=== PATIENT | male | born 1975 | race Caucasian/White ===

== ENCOUNTER → 2018-06-14 09:12 | Outpatient (CLI) | payer OTHER, SELFPAY ==
--- NOTE | 2018-06-14 | DI.US.S_ITS ---
PROCEDURE: US ABDOMEN COMPLETE INDICATIONS: ABDOMINAL PAIN TECHNIQUE: Real-time scanning was performed of the abdominal and retroperitoneal organs, with image documentation. COMPARISON: [facility], US, ABDOMEN COMPLETE, 02/13/2012, 11:02. FINDINGS: Liver: Liver is normal in size and homogeneous in echotexture. Gallbladder: Gallbladder is within normal limits without cholelithiasis or gallbladder wall inflammation. Biliary ducts: Intrahepatic bile ducts are non-dilated. Extrahepatic bile duct caliber measures 3 mm. Normal is 6-7 mm or less in diameter, or 10 mm or less post-cholecystectomy. Pancreas: Visualized portions of the pancreas are sonographically normal. Spleen: Spleen is normal in size and homogeneous in echotexture. Kidneys: Kidneys are normal in size and echotexture. Right kidney measures 11.6 cm long; left kidney measures 12.9 cm long. No hydronephrosis or nephrolithiasis. No solid masses. Aorta: Visualized aorta is normal in caliber at less than 3 cm. Iliacs: Proximal common iliac arteries are normal in caliber at less than 2.5 cm. IVC: Intrahepatic inferior vena cava is patent. Miscellaneous: No free abdominal fluid. IMPRESSION: 1. No sonographic abnormalities are evident to explain the patient's abdominal pain. 2. No cholelithiasis or evidence of acute cholecystitis. 3. No hydronephrosis. Dictated by: Emile Valadez M.D. on 06/14/2018 at 9:43 Approved by: Emile Valadez M.D. on 06/14/2018 at 9:44
== END ==
PROVIDERS: Family Provider Internal Medicine; PCP Family Medicine; Visit Provider Family Medicine
DX: R10.9 Unspecified abdominal pain (principal)
CPT/HCPCS: 76700

== ENCOUNTER → 2020-01-29 10:26 | Outpatient (CLI) | payer OTHER, SELFPAY ==
--- NOTE | 2020-01-29 | DI.RAD.S_ITS ---
PROCEDURE: XR T AND L SPINE 2 TO 3 VIEWS INDICATIONS: Pain in right thigh TECHNIQUE: 2 views acquired of the thoracolumbar spine. COMPARISON: None. FINDINGS: Diffuse spondylitic changes and facet arthropathy. Mild dextrocurvature. No fracture. Soft tissues: No suspicious soft tissue calcifications. IMPRESSION: Dextrocurvature of the thoracic spine and diffuse spondylosis. Dictated by: Moreno Simon M.D. on 01/29/2020 at 15:01 Approved by: Moreno Simon M.D. on 01/29/2020 at 15:03
--- NOTE | 2020-01-29 | DI.RAD.S_ITS ---
PROCEDURE: XR FEMUR RT MIN 2V INDICATIONS: Pain in right thigh TECHNIQUE: 4 views of the femur were acquired. COMPARISON: None. FINDINGS: Bones: No fracture. Calcific tendinitis or dystrophic calcifications projecting at the right greater trochanter. Mild to moderate right hip joint degeneration. Soft tissues: No suspicious soft tissue calcifications or masses. IMPRESSION: Degenerative changes as above. No fracture If the patient's pain or other symptoms persist, consider further evaluation with MRI Dictated by: Moreno Simon M.D. on 01/29/2020 at 13:15 Approved by: Moreno Simon M.D. on 01/29/2020 at 13:19
--- NOTE | 2020-01-29 | DI.RAD.S_ITS ---
PROCEDURE: XR FEMUR LT MIN 2V INDICATIONS: Pain in right thigh TECHNIQUE: 4 views of the femur were acquired. COMPARISON: None. FINDINGS: Bones: No fractures or dislocations. No suspicious bony lesions. Soft tissues: No suspicious soft tissue calcifications or masses. IMPRESSION: Mild left hip joint degeneration. If the patient's pain or other symptoms persist, consider further evaluation with MRI Dictated by: Moreno Simon M.D. on 01/29/2020 at 14:51 Approved by: Moreno Simon M.D. on 01/29/2020 at 15:01
== END ==
PROVIDERS: Family Provider Internal Medicine; PCP Family Medicine; Referring Provider Family Medicine; Visit Provider Family Medicine
DX: M79.651 Pain in right thigh (principal); M16.0 Bilateral primary osteoarthritis of hip; M47.814 Spondylosis without myelopathy or radiculopathy, thoracic region; M54.6 Pain in thoracic spine; G89.29 Other chronic pain
CPT/HCPCS: 72082; 73552

== ENCOUNTER 2020-06-29 18:18 | Inpatient (IN) | payer OTHER, SELFPAY ==
[2020-06-29] VITALS (8 sets, daily range): BP systolic 125–143; BP diastolic 58–78; PULSE 81–100; RESP 16–20; TEMP 37.4–38.4; O2SAT 97–99; BMI 29.0
--- NOTE | 2020-06-29 19:10 | ED_ITS ---
HPI - Skin/Abscess/Foreign Bdy General Chief complaint: Skin/Abscess/Foreign Body Stated complaint: RIGHT KNEE INFECTION Time Seen by Provider: 06/29/20 19:03 Source: patient Mode of arrival: Wheelchair Limitations: no limitations History of Present Illness HPI narrative: Patient is an otherwise healthy 44-year-old male here for evaluation of a infection around his right knee. He states that several days ago he had what he thought was an ingrown hair which he picked at it home. He thought that this would resolve the symptoms however since that time has had developing redness and discomfort in the front of his right knee. Yesterday was seen by his primary provider. Received a shot of a ?antibiotic? and was sent home with a prescription for Augmentin. He has taken 1 dose of that medication. He was instructed to follow-up with orthopedics which he initially had scheduled for tomorrow however came to the emergency department because his symptoms were worsening. He denies any trauma. Has never had anything like this in the past. Related Data Home Medications Medication Instructions Recorded Confirmed ibuprofen 600 mg PO TID 06/29/20 06/29/20 Allergies Allergy/AdvReac Type Severity Reaction Status Date / Time iodine [IODINE] Allergy Unknown Verified 06/29/20 20:14 Review of Systems Constitutional Constitutional: Denies fever(s) Cardiovascular Cardiovascular: Denies chest pain and Denies dyspnea Respiratory Respiratory: Denies dyspnea Gastrointestinal Gastrointestinal: Denies abdominal pain Musculoskeletal Comments: Pain around the right knee Integumentary/Breasts Comments: Redness around the right knee Neurologic Neurologic: Denies behavioral changes Psychiatric Psychiatric: Denies behavioral changes Hematologic/Lymphatic On Anticoagulants: No Allergic/Immunologic Allergic/Immunologic: Denies urticaria Patient History Medical History Healthy adult Social History household members: spouse and children Smoking Status: Former smoker alcohol intake: former Exam Initial Vital Signs Initial Vital Signs: Vital Signs Temperature 100.1 F H 06/29/20 18:20 Pulse Rate 100 H 06/29/20 18:20 Respiratory Rate 20 06/29/20 18:20 Blood Pressure 143/78 H 06/29/20 18:20 Pulse Oximetry 98 06/29/20 18:20 Const General: cooperative, comfortable, well groomed, No in distress and No di sheveled Limitations: mental status not altered [facility] Head: normal to inspection and normocephalic Resp Effort & Inspection: normal respiratory effort Cardio Rate: tachycardic Pulses: dorsalis pedis present on the right Skin Other: Patient with a 2 cm area of white over the inferior portion of his patella tendon just proximal to the tibial tuberosity. His surrounding erythema mostly located on the lateral side from his mid thigh down to his ankle however there is redness posteriorly and medially as well. It is warm to the touch. Extrem Other: Patient can flex and extend his right knee without discomfort in the knee joint. Psych Appearance: grossly normal and well kempt Course Orders Ordered: ED Orders 06/29/20 19:00 Basic Metabolic Panel Stat C-Reactive Protein Quant Stat Complete Blood Count AUTO DIFF Stat Erythrocyte Sedimentation Rate Stat Lactate (Lactic Acid) Stat 06/29/20 19:06 Wound Culture and Gram Stain Stat 06/29/20 19:09 COVID19 Stat 06/29/20 19:10 XR knee RT 3V Stat 06/29/20 19:37 Blood Culture Stat 06/29/20 19:48 Consult to Orthopedic Surgery Stat Acetaminophen (Acetaminophen 325 Mg Tablet) 650 mg PO Q6HR PRN PRN Reason: Fever/Mild Pain (1-3) Sodium Chloride (Normal Saline 0.9%) 1,000 mls @ 150 mls/hr IV CONT MARIELENA Last Infusion: 06/29/20 21:30 Dose: 0 mls/hr Documented by: Admin: 06/29/20 19:36 Dose: 150 mls/hr Documented by: LAKESHA Ceftriaxone Sodium/Dextrose (Rocephin) 1 gm in 50 mls @ 100 mls/hr IV Q24H MARIELENA Morphine Sulfate (Morphine 2 Mg/Ml Inj) 2 mg IV Q4HR PRN PRN Reason: Pain, Moderate (4-6) Naloxone HCl (Naloxone 0.4 Mg/Ml Vial) 0.2 mg IV Q2MIN PRN PRN Reason: Opiate Reversal Ondansetron HCl (Ondansetron 4 Mg/2 Ml Inj) 4 mg IV Q8HR PRN PRN Reason: Nausea And Vomiting Sodium Chloride (Sodium Chloride 0.9% Flush) 10 ml IV BID MARIELENA Sodium Chloride (Sodium Chloride 0.9% Flush) 10 ml IV PRN PRN PRN Reason: Flush Discontinued Medications Acetaminophen (Acetaminophen 325 Mg Tablet) 650 mg PO NOW ONE Stop: 06/29/20 21:09 Last Admin: 06/29/20 21:11 Dose: 650 mg Documented by: LAKESHA Vancomycin HCl (Vancomycin) 1,000 mg in 200 mls @ 200 mls/hr IV NOW ONE Stop: 06/29/20 20:09 Last Infusion: 06/29/20 21:19 Dose: 0 mls/hr Documented by: Admin: 06/29/20 20:10 Dose: 200 mls/hr Documented by: LAKESHA Ceftriaxone Sodium/Dextrose (Rocephin) 1 gm in 50 mls @ 100 mls/hr IV NOW ONE Stop: 06/29/20 19:41 Last Infusion: 06/29/20 20:10 Dose: 0 mls/hr Documented by: Admin: 06/29/20 19:35 Dose: 100 mls/hr Documented by: LAKESHA Vital Signs Vital signs: Vital Signs - 8 hr 06/29/20 18:20 06/29/20 19:36 06/29/20 20:00 Temperature 100.1 F H Pulse Rate 100 H 87 83 Respiratory Rate 20 Blood Pressure 143/78 H Pulse Oximetry 98 97 98 06/29/20 20:04 06/29/20 21:00 Temperature Pulse Rate 89 84 Respiratory Rate 16 Blood Pressure 140/76 125/58 L Pulse Oximetry 98 99 MDM - Skin/Abscess/Foreign Bdy Lab Data Attestation: I reviewed the patient's lab results. Result diagrams: 06/29/20 19:00 06/29/20 19:00 Labs: Lab Results 06/29/20 06/29/20 06/29/20 Range/Units 19:00 19:00 19:00 WBC 14.4 H (4.5-11.0) X10^3/uL RBC 4.49 L (4.5-5.9) X10^6/uL Hgb 14.5 (13.5-17.5) g/dL Hct 41.6 (41-53) % MCV 92.6 (80-100) fL MCH 32.4 (26-34) PG MCHC 34.9 (30-36) % RDW 12.4 (11.6-14.8) % Plt Count 368 (150-400) X10^3/uL Neut % (Auto) 79.6 H (50-75) % Lymph % (Auto) 10.1 L (25-40) % [place] % (Auto) 9.7 (3-14) % Eos % (Auto) 0.2 L (2-4) % Baso % (Auto) 0.4 (0-2) % Neut # (Auto) 83748 H (5195-2038) /uL Lymph # (Auto) 1400 (2147-1406) /uL [place] # (Auto) 1400 H (0-900) /uL Eos # (Auto) 0 (0-450) /uL Baso # (Auto) 100 (0-100) /uL ESR 47 H (0-15) MM/HR Sodium 135 L (137-145) mmol/L Potassium 4.0 (3.4-5.1) mmol/L Chloride 102 (98-107) mmol/L Carbon Dioxide 26 (22-32) mmol/L BUN 14 (9-20) mg/dL Creatinine 0.98 (0.66-1.25) mg/dL Estimated GFR > 60.0 (>60) mL/min BUN/Creatinine Ratio 14.3 (6-22) Glucose 132 H (70-100) mg/dL Lactate (0.7-2.1) mmol/L Calcium 9.4 (8.4-10.2) mg/dL C-Reactive Protein 12.2 H (<1.0) mg/dL SARS-CoV-2 (PCR) (Negative) 06/29/20 06/29/20 Range/Units 19:00 19:09 WBC (4.5-11.0) X10^3/uL RBC (4.5-5.9) X10^6/uL Hgb (13.5-17.5) g/dL Hct (41-53) % MCV (80-100) fL MCH (26-34) PG MCHC (30-36) % RDW (11.6-14.8) % Plt Count (150-400) X10^3/uL Neut % (Auto) (50-75) % Lymph % (Auto) (25-40) % [place] % (Auto) (3-14) % Eos % (Auto) (2-4) % Baso % (Auto) (0-2) % Neut # (Auto) (9768-4154) /uL Lymph # (Auto) (1383-5045) /uL [place] # (Auto) (0-900) /uL Eos # (Auto) (0-450) /uL Baso # (Auto) (0-100) /uL ESR (0-15) MM/HR Sodium (137-145) mmol/L Potassium (3.4-5.1) mmol/L Chloride (98-107) mmol/L Carbon Dioxide (22-32) mmol/L BUN (9-20) mg/dL Creatinine (0.66-1.25) mg/dL Estimated GFR (>60) mL/min BUN/Creatinine Ratio (6-22) Glucose (70-100) mg/dL Lactate 1.3 (0.7-2.1) mmol/L Calcium (8.4-10.2) mg/dL C-Reactive Protein (<1.0) mg/dL SARS-CoV-2 (PCR) Negative (Negative) Imaging Data Extremity x-ray #1: Radiologist's Impression: [address] [id number] ReportSigned Patient: Rolando Au BMR#: [id number]: [id number]:[id number]/Sex: 44 / MDate of Service: 06/29/20Loc: EDAccession Number: [id number] Procedure: XR knee RT 3V Ordering Provider: Wilfredo Suazo D.O. PROCEDURE: XR KNEE RT 3V INDICATIONS: cellulitis TECHNIQUE: 3 views of the knee were acquired. COMPARISON: None. FINDINGS: Bones: There are tricompartmental degenerative changes with tricompartmental osteophytes. Lateral patellar tilt is noted with narrowing of the lateral joint space. No medial or lateral joint space narrowing. No fracture or dislocation. Soft tissues: No joint effusion. No suspicious soft tissue calcifications. No soft tissue gas. No radiopaque foreign bodies. IMPRESSION: Tricompartmental degenerative changes consistent with osteoarthritis. No acute abnormality. Dictated by: Edilberto Powell M.D. on 06/29/2020 at 19:37 Approved by: Edilberto Powell M.D. on 06/29/2020 at 19:39 [facility] Narrative Medical decision making narrative: Patient's history and physical exam today is consistent with cellulitis/abscess. When the patient flexed his right knee on the exam a large amount of purulent material was expressed from the white area on the inferior portion of his patella tendon. I do have low suspicion for a septic joint given his presentation. He does have a leukocytosis. The purulent material was cultured. He was started on vancomycin and Rocephin. Blood cultures were also obtained. I did discuss the case with Dr. cardenas with orthopedics who evaluated the patient here in the emergency department and performed a larger incision and drainage of the abscess and was able to express more purulent material. He recommended patient be admitted to the medicine service for continued IV antibiotics. Discussed the case with [facility] provider who will admit for further evaluation and treatment. I discussed this with the patient as well. He expressed understanding and agreement. Discharge Plan Departure Patient Disposition: Admitted As Inpatient Clinical Impression: Cellulitis Admit Date/Time: 06/29/20 21:04 Admit Provider: Zena Simon
[2020-06-29 19:17] LABS: Add Manual Diff / Slide Review NO; Basophils Absolute Auto 100 /uL (0-100); Basophils Percent Auto 0.4 % (0-2); Eosinophils Absolute Auto 0 /uL (0-450); Eosinophils Percent Auto 0.2 % (2-4); Hematocrit 41.6 % (41-53); Hemoglobin 14.5 g/dL (13.5-17.5); Lymphocytes Absolute Auto 1400 /uL (1100-4500); Lymphocytes Percent Auto 10.1 % (25-40); Mean Corpuscular HGB Conc 34.9 % (30-36); Mean Corpuscular Hemoglobin 32.4 PG (26-34); Mean Corpuscular Volume 92.6 fL (80-100); Monocytes Absolute Auto 1400 /uL (0-900); Monocytes Percent Auto 9.7 % (3-14); Neutrophils Absolute Auto 11500 /uL (1500-7000); Neutrophils Percent Auto 79.6 % (50-75); Platelet Count 368 X10^3/uL (150-400); Red Blood Cell Count 4.49 X10^6/uL (4.5-5.9); Red Cell Distribution Width 12.4 % (11.6-14.8); White Blood Cell Count 14.4 X10^3/uL (4.5-11.0)
[2020-06-29 19:24] LABS: Lactate (Lactic Acid) 1.3 mmol/L (0.7-2.1)
[2020-06-29 19:27] LABS: BUN Creatinine Ratio 14.3 (6-22); Blood Urea Nitrogen 14 mg/dL (9-20); Calcium 9.4 mg/dL (8.4-10.2); Carbon Dioxide 26 mmol/L (22-32); Chloride 102 mmol/L (98-107); Estimated Glomerular Filt Rate > 60.0 mL/min (>60); Glucose 132 mg/dL (70-100); HEMOLYSIS 16 (0-50); Sodium 135 mmol/L (137-145)
[2020-06-29 19:30] LABS: COVID19 -Nasal RAPID Negative (Negative)
[2020-06-29] MEDS: CEFTRIAXONE 1 GM/50 ML FROZ.PIGGY IV (19:35)
[2020-06-29] MEDS: SODIUM CHLORIDE 0.9% 1,000 ML 150 ML IV (19:36)
[2020-06-29 19:42] LABS: C-Reactive Protein Quant 12.2 mg/dL (<1.0)
[2020-06-29 19:43] LABS: Erythrocyte Sedimentation Rate 47 MM/HR (0-15)
[2020-06-29] MEDS: VANCOMYCIN 1,000 MG/200 ML PIGGYBACK 200 MG IV (20:10)
[2020-06-29] MEDS: LIDOCAINE 1% W/EPI 30 ML (20:20)
--- NOTE | 2020-06-29 20:46 | P.CONS_ITS ---
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 Patient has a long history of recurrent staph infections as well as history of recurring prepatellar bursitis. Patient noticed worsening pain over the anterior aspect of his right knee several days ago. Pain became excruciatingly painful several days ago and he was seen by his physician at [facility]. He received an intramuscular injection of antibiotics likely Rocephin. He has been on oral antibiotics since that time without significant relief of symptoms. Patient presents the ED with pain and worsening erythema spreading up his thigh and down his lower leg. During the ER physicians exam the prepatellar bursa spontaneously started to decompress. Copious purulent material was encountered. Patient had immediate relief of some of his pain and he can range his knee without significant difficulty. Meds Home Medications and Allergies Home Medications Medication Instructions Recorded Confirmed Type ibuprofen 600 mg PO TID 06/29/20 06/29/20 History Allergies Allergy/AdvReac Type Severity Reaction Status Date / Time iodine [IODINE] Allergy Unknown Verified 06/29/20 20:14 Review of Systems Review of Systems ROS: Yes All systems reviewed with the patient and are negative except as otherwise documented Exam Vital Signs (past 8 hours): - 06/29/20 18:20 06/29/20 19:36 06/29/20 20:00 Temperature 100.1 F H Pulse Rate 100 H 87 83 Respiratory Rate 20 Blood Pressure 143/78 H Pulse Oximetry 98 97 98 06/29/20 20:04 Temperature Pulse Rate 89 Respiratory Rate Blood Pressure 140/76 Pulse Oximetry 98 Oxygen Delivery Method Room Air Narrative Exam Narrative: Neurovascular intact in the right lower extremity. Fluctuant mass centered at the prepatellar bursa. Small eruption through the skin with purulence material draining. Slight erythema extending proximal to the knee as well as down the lower leg without induration. No streaking. Range of motion of the knee from full extension to 90? of flexion without significant difficulty. Objective Labs Result Diagrams: 06/29/20 19:00 06/29/20 19:00 Labs: Laboratory Results - last 24 hr 06/29/20 06/29/20 06/29/20 19:00 19:00 19:00 WBC 14.4 H RBC 4.49 L Hgb 14.5 Hct 41.6 MCV 92.6 MCH 32.4 MCHC 34.9 RDW 12.4 Plt Count 368 Neut % (Auto) 79.6 H Lymph % (Auto) 10.1 L [place] % (Auto) 9.7 Eos % (Auto) 0.2 L Baso % (Auto) 0.4 Neut # (Auto) 55364 H Lymph # (Auto) 1400 [place] # (Auto) 1400 H Eos # (Auto) 0 Baso # (Auto) 100 ESR 47 H Sodium 135 L Potassium 4.0 Chloride 102 Carbon Dioxide 26 BUN 14 Creatinine 0.98 Estimated GFR > 60.0 BUN/Creatinine Ratio 14.3 Glucose 132 H Lactate Calcium 9.4 C-Reactive Protein 12.2 H SARS-CoV-2 (PCR) 06/29/20 06/29/20 19:00 19:09 WBC RBC Hgb Hct MCV MCH MCHC RDW Plt Count Neut % (Auto) Lymph % (Auto) [place] % (Auto) Eos % (Auto) Baso % (Auto) Neut # (Auto) Lymph # (Auto) [place] # (Auto) Eos # (Auto) Baso # (Auto) ESR Sodium Potassium Chloride Carbon Dioxide BUN Creatinine Estimated GFR BUN/Creatinine Ratio Glucose Lactate 1.3 Calcium C-Reactive Protein SARS-CoV-2 (PCR) Negative Assessment & Plan Assessment & Plan narrative: Patient is a 44-year-old male with a longstanding history of recurrent staph infections as well as her current history of prepatellar bursitis. Patient received a dose of intramuscular antibiotics from his primary care physician and orbits on likely Rocephin. He has also been prescribed oral antibiotics. He has not had significant relief of symptoms. The prepatellar bursa spontaneously started to decompress in the ER I then further decompressed the prepatellar bursa and flushed it with 500 cc of normal saline. I then packed the prepatellar bursa with quarter-inch plain packing. Patient may ultimately require a trip to the OR however this point this is certainly temporized his infection. My hope is that daily packing changes along with IV antibiotics will be enough to clear this infection. Admit to hospitalist service. -NPO after midnight -weightbearing as tolerated right lower extremity -elevate the extremity while in bed -Compressive wrap -IV antibiotics for septic prepatellar bursitis and cellulitis, likely staphy lococcal infection due to previous history of multiple staph infections -daily packing changes Time Spent With Patient Time with patient: Greater than 35 minutes
[2020-06-29] MEDS: ACETAMINOPHEN 325 MG TABLET 650 MG PO (21:11)
--- NOTE | 2020-06-29 22:12 | PC.NURSE ---
Admission note: Patient arrived via stretcher, transferred self to in patient bed. AxOx3, can make needs known. No hx of recent falls. Venkatesh wrap to right knee, gauze with serosang drainage. Ambulates SBA without assistive device. Fall risk and call light education given, call light in reach.
[2020-06-30] VITALS (10 sets, daily range): BP systolic 107–139; BP diastolic 63–85; PULSE 71–84; RESP 16–20; TEMP 36.8–37.6; O2SAT 94–98
--- NOTE | 2020-06-30 03:30 | P.HP_ITS ---
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 He affected open to expose the hair and saw that he had quite a bit of purulence drainage coming out of it. He saw his PCP over on [facility] who gave him an intramuscular injection of Rocephin and prescribed oral Augmentin. He states he took 1 dose of the Augmentin this morning and his knee started to show increased swelling posteriorly as well as increasing erythema. He contacted his PCP who directed him to go get off the [place] and be seen at this ED. The patient has had a number of staph infections usually attributable to his work where he spends a lot of time on his hands and knees. He was also febrile on presentation to the ED of 101?. Dr. Hernandez saw the patient and opened up his wound and was able the express quite a bit of purulence discharge out of the wound. Per the patient he did irrigate the wound and packed it with gauze. He plans to re-evaluate the patient and repack or bring the patient into surgery for a more extensive washout. Currently his temperature has improved and is 99.7 blood pressure 129/73, heart rate 84, respiratory rate of 18, oxygen saturation of 97% on room air he weighs 106 kg with a BMI of 29. His white count is elevated at 14.4, RBC is 4.49, hemoglobin 14.5, hematocrit 41.6, platelet count 368, a does have a left shift with a neutrophil count of 11,500, his ESR is elevated at 47, sodium is 135, glucose was 132, C-reactive protein was 12.2, and COVID 19 PCR is negative. Patient History Medical History Healthy adult Family & Social History Family History Mother Alive and well Father Suicide Social History: household members spouse,children Prior Living Arrangements House Safety & Behavioral: Feels Safe in Current Yes Environment Been Physically Hurt or No Threatened By a Person Suicidal Ideation Description None Suicide Plan Description No Plan Tobacco & Substance use: Smoking Status Former smoker alcohol intake former Substance Use Type does not use Meds Home Medications and Allergies Home Medications Medication Instructions Recorded Confirmed Type ibuprofen 600 mg PO TID 06/29/20 06/29/20 History Allergies Allergy/AdvReac Type Severity Reaction Status Date / Time iodine [IODINE] Allergy Unknown Verified 06/29/20 20:14 Review of Systems Review of Systems ROS: Yes All systems reviewed with the patient and are negative except as otherwise documented Exam Vital Signs (past 8 hours): - 06/29/20 19:36 06/29/20 20:00 06/29/20 20:04 Temperature Pulse Rate 87 83 89 Respiratory Rate Blood Pressure 140/76 Pulse Oximetry 97 98 98 06/29/20 21:00 06/29/20 21:09 06/29/20 21:11 Temperature 101.2 F H 101.2 F H Pulse Rate 84 Respiratory Rate 16 Blood Pressure 125/58 L Pulse Oximetry 99 06/29/20 22:06 06/30/20 00:00 06/30/20 00:02 Temperature 99.4 F 98.4 F Pulse Rate 81 84 Respiratory Rate 20 18 Blood Pressure 132/72 129/73 Pulse Oximetry 99 97 97 06/30/20 01:28 Temperature 99.7 F H Pulse Rate Respiratory Rate Blood Pressure Pulse Oximetry Oxygen Delivery Method Room Air Oxygen Flow Rate 0 Narrative Exam Narrative: Gen: Alert, oriented, well-developed 44 y.o. male, appears comfortable HEENT: normocephalic, atraumatic, conjunctiva clear, sclera non-icteric, oral mucosa pink and moist Neck: supple, full ROM, no JVD, trachea is midline Resp: Lungs CTA, non-labored breathing CV: RRR, no murmur or rubs Abd: soft, non-tender, normoactive BTs Skin: no lesions or rashes, dry and intact Neuro: Alert and oriented X 4 w/no focal deficits. Speech clear and coherent. Extremities: Right knee with a arnol wrap and dressing, did not remove. moves all 4 extremities, is ambulatory, negative Jocelyne?s sign Psyche: normal mood and affect Objective Labs Result Diagrams: 06/29/20 19:00 06/29/20 19:00 Labs: Laboratory Results - last 24 hr 06/29/20 06/29/20 06/29/20 19:00 19:00 19:00 WBC 14.4 H RBC 4.49 L Hgb 14.5 Hct 41.6 MCV 92.6 MCH 32.4 MCHC 34.9 RDW 12.4 Plt Count 368 Neut % (Auto) 79.6 H Lymph % (Auto) 10.1 L [place] % (Auto) 9.7 Eos % (Auto) 0.2 L Baso % (Auto) 0.4 Neut # (Auto) 93887 H Lymph # (Auto) 1400 [place] # (Auto) 1400 H Eos # (Auto) 0 Baso # (Auto) 100 ESR 47 H Sodium 135 L Potassium 4.0 Chloride 102 Carbon Dioxide 26 BUN 14 Creatinine 0.98 Estimated GFR > 60.0 BUN/Creatinine Ratio 14.3 Glucose 132 H Lactate Calcium 9.4 C-Reactive Protein 12.2 H SARS-CoV-2 (PCR) 06/29/20 06/29/20 19:00 19:09 WBC RBC Hgb Hct MCV MCH MCHC RDW Plt Count Neut % (Auto) Lymph % (Auto) [place] % (Auto) Eos % (Auto) Baso % (Auto) Neut # (Auto) Lymph # (Auto) [place] # (Auto) Eos # (Auto) Baso # (Auto) ESR Sodium Potassium Chloride Carbon Dioxide BUN Creatinine Estimated GFR BUN/Creatinine Ratio Glucose Lactate 1.3 Calcium C-Reactive Protein SARS-CoV-2 (PCR) Negative Assessment & Plan Assessment & Plan narrative: Rolando Au will be admitted as an inpatient for further evaluation and treatment of a right-sided cellulitis of the knee with a possible septic joint infection. Cellulitis of the right knee, acute and present on admission - Dr. Hernandez consulting - Will either be re-packed or may require washout in the OR under general anesthesia - NPO after midnight Nausea, acute occured after IV antibiotic administration - Written for IV zofran VTE prophylaxis: Wells risk score: 0 Bilateral SCDs Consults: Dr. Hernandez consult and involvement is appreciated. Patient is admitted under inpatient status with expected length of stay greater than 2 midnights due to severity of presenting symptoms, risk of adverse event, and complexity of treatment plan. FEN: NS at 150 ml/hour, NPO, BMP and magnesium in the am. Dispo: Probable discharge to home Code Status: Full as discussed with patient Scores Wells' Criteria for PE Clinical signs and symptoms of DVT: No PE is #1 Dx or equally likely: No Heart rate > 100: No Immobilization at least 3 days or surg in previous 4 weeks: No History of PE or DVT: No Hemoptysis: No Malignancy w/Treatment within 6 months or palliative: No Wells' PE Score total: 0 Quality VTE Deep Vein Thrombosis/Pulmonary Embolism Present on Admission: No
[2020-06-30 05:53] LABS: Add Manual Diff / Slide Review NO; Basophils Absolute Auto 100 /uL (0-100); Basophils Percent Auto 0.6 % (0-2); Eosinophils Absolute Auto 100 /uL (0-450); Eosinophils Percent Auto 1.1 % (2-4); Hematocrit 39.9 % (41-53); Hemoglobin 13.5 g/dL (13.5-17.5); Lymphocytes Absolute Auto 2600 /uL (1100-4500); Lymphocytes Percent Auto 20.4 % (25-40); Mean Corpuscular HGB Conc 33.9 % (30-36); Mean Corpuscular Hemoglobin 31.6 PG (26-34); Mean Corpuscular Volume 93.1 fL (80-100); Monocytes Absolute Auto 1500 /uL (0-900); Monocytes Percent Auto 11.7 % (3-14); Neutrophils Absolute Auto 8500 /uL (1500-7000); Neutrophils Percent Auto 66.2 % (50-75); Platelet Count 380 X10^3/uL (150-400); Red Blood Cell Count 4.28 X10^6/uL (4.5-5.9); Red Cell Distribution Width 12.8 % (11.6-14.8); White Blood Cell Count 12.8 X10^3/uL (4.5-11.0)
[2020-06-30] MEDS: ACETAMINOPHEN 325 MG TABLET 650 MG PO ×2 (05:53→22:59)
[2020-06-30 06:02] LABS: BUN Creatinine Ratio 12.8 (6-22); Blood Urea Nitrogen 12 mg/dL (9-20); Calcium 9.2 mg/dL (8.4-10.2); Carbon Dioxide 30 mmol/L (22-32); Chloride 104 mmol/L (98-107); Estimated Glomerular Filt Rate > 60.0 mL/min (>60); Glucose 124 mg/dL (70-100); HEMOLYSIS < 15 (0-50); Potassium 4.4 mmol/L (3.4-5.1); Sodium 138 mmol/L (137-145)
--- NOTE | 2020-06-30 06:18 | PC.NURSE ---
C/O headache requested pain relief 650 mg. of Tylenol administered with sips of water. Will monitor.
--- NOTE | 2020-06-30 08:24 | PM.PN.1 ---
Subjective Subjective Date Patient Seen: 06/30/20 Time Patient Seen: 08:24 Interval history: Pain is improved since bedside irrigation debridement in the ER yesterday evening. Range of motion from full extension to 100? of flexion without any pain. Mild pain with weight-bearing. Denies any nausea vomiting fevers chills. Exam Vital Signs (past 8 hours): - 06/30/20 01:28 06/30/20 05:00 06/30/20 07:41 Temperature 99.7 F H 99.2 F 98.6 F Pulse Rate 79 72 Respiratory Rate 18 16 Blood Pressure 108/76 110/63 Pulse Oximetry 96 94 Oxygen Delivery Method Room Air Oxygen Flow Rate 0 Narrative Exam Narrative: Improving erythema about the right anterior knee. Range of motion is from full extension to 100? of flexion without any pain. Weightbearing is still mildly painful. Some residual bogginess of the tissue at the tibial tubercle. Packing changed at bedside. No new purulence encountered. Packing replaced. Objective Labs Result Diagrams: 06/30/20 05:25 06/30/20 05:25 Labs: Laboratory Results - last 24 hr 06/29/20 06/29/20 06/29/20 19:00 19:00 19:00 WBC 14.4 H RBC 4.49 L Hgb 14.5 Hct 41.6 MCV 92.6 MCH 32.4 MCHC 34.9 RDW 12.4 Plt Count 368 Neut % (Auto) 79.6 H Lymph % (Auto) 10.1 L [place] % (Auto) 9.7 Eos % (Auto) 0.2 L Baso % (Auto) 0.4 Neut # (Auto) 65761 H Lymph # (Auto) 1400 [place] # (Auto) 1400 H Eos # (Auto) 0 Baso # (Auto) 100 ESR 47 H Sodium 135 L Potassium 4.0 Chloride 102 Carbon Dioxide 26 BUN 14 Creatinine 0.98 Estimated GFR > 60.0 BUN/Creatinine Ratio 14.3 Glucose 132 H Lactate Calcium 9.4 Magnesium C-Reactive Protein 12.2 H SARS-CoV-2 (PCR) 06/29/20 06/29/20 06/30/20 19:00 19:09 05:25 WBC 12.8 H RBC 4.28 L Hgb 13.5 Hct 39.9 L MCV 93.1 MCH 31.6 MCHC 33.9 RDW 12.8 Plt Count 380 Neut % (Auto) 66.2 Lymph % (Auto) 20.4 L [place] % (Auto) 11.7 Eos % (Auto) 1.1 L Baso % (Auto) 0.6 Neut # (Auto) 8500 H Lymph # (Auto) 2600 [place] # (Auto) 1500 H Eos # (Auto) 100 Baso # (Auto) 100 ESR Sodium Potassium Chloride Carbon Dioxide BUN Creatinine Estimated GFR BUN/Creatinine Ratio Glucose Lactate 1.3 Calcium Magnesium C-Reactive Protein SARS-CoV-2 (PCR) Negative 06/30/20 05:25 WBC RBC Hgb Hct MCV MCH MCHC RDW Plt Count Neut % (Auto) Lymph % (Auto) [place] % (Auto) Eos % (Auto) Baso % (Auto) Neut # (Auto) Lymph # (Auto) [place] # (Auto) Eos # (Auto) Baso # (Auto) ESR Sodium 138 Potassium 4.4 Chloride 104 Carbon Dioxide 30 BUN 12 Creatinine 0.94 Estimated GFR > 60.0 BUN/Creatinine Ratio 12.8 Glucose 124 H Lactate Calcium 9.2 Magnesium 2.0 C-Reactive Protein SARS-CoV-2 (PCR) [facility] Medical History Healthy adult Family History Mother Alive and well Father Suicide Social History household members: spouse and children Smoking Status: Former smoker alcohol intake: former Assessment & Plan Assessment & Plan narrative: Patient is a 44-year-old male with the longstanding history of her current staph infections as well as a recurrent history prepatellar bursitis. He presented yesterday evening to the ER with septic prepatellar bursitis of the right knee. This was drained at bedside and packed. He was then admitted for IV antibiotics. Packing was changes morning with improvement of his exam. Although his exam is improved he may ultimately still require surgical debridement. At this point patient can eat today. And will see how he does with continued IV antibiotics and packing changes. - WBAT - daily packing changes - continue IV abx per hospitalist Time Spent With Patient Time with patient: less than 15 minutes Quality VTE Deep Vein Thrombosis/Pulmonary Embolism Present on Admission: No
[2020-06-30] MEDS: SODIUM CHLORIDE 0.9% FLUSH 10 ML IV ×2 (09:22→19:26)
--- NOTE | 2020-06-30 12:09 | CM.DANOTE ---
DCP: Case received, EMR reviewed and met with patient. , Libra was at bedside as well. Introduced self and role. Was able to obtain information from patient regarding his baseline activity status prior to hospitalization. DCP assessment completed with information currently available. Patient is a 69 year old female who admitted yesterday evening to the care of the hospitalist team. PCP: Dr. Paul. Payer: confirmed: [facility]. Patient came to the hospital via private vehicle secondary to having some increased redness to his right knee. Patient had been seen recently for this, and was prescribed Augmentin. Patient was diagnosed with septic patillar bursitis. He had an incision for draining of abscess by orthopedist. Met with patient in his room. Stated, he has had this before, confirmed that he has never had to be on termite exterminator helper antibiotics. He is independent at baseline, resides with his on [facility]. He is a contractor, employed at his company, [employer]. Stated, he is on his knees a lot, so that could be the cause of the infection. P: DCP to continue to follow. The goal would be for him to go home on oral antibiotics, but will follow closely. Valarie Dunn RN/Moto Mix Operator
[2020-06-30] MEDS: VANCOMYCIN 1,500 MG/300 ML PIGGYBACK 200 MG IV ×2 (14:21→20:45)
--- NOTE | 2020-06-30 14:55 | PM.PN.1 ---
Subjective Subjective Date Patient Seen: 06/30/20 Time Patient Seen: 11:00 Interval history: Rolando Au is a healthy 44-year-old male with a remote history of atrial fibrillation who was admitted with a skin and soft tissue infection of his right lower extremity. Orthopedic surgery did a bedside I&D, cultures are currently growing Staph aureus, sensitivity pending. He was seen for follow-up by Dr. Hernandez of Orthopedics this morning who recommended continued packing and dressing changes and IV antibiotics. He still may need debridement in the operating room, but this will depend on the progress of his infection. Exam Vital Signs (past 8 hours): - 06/30/20 07:41 Temperature 98.6 F Pulse Rate 72 Respiratory Rate 16 Blood Pressure 110/63 Pulse Oximetry 94 Oxygen Delivery Method Room Air Oxygen Flow Rate 0 Narrative Exam Narrative: Gen: Alert, oriented, well-developed 44 y.o. male, appears comfortable HEENT: normocephalic, atraumatic, conjunctiva clear, sclera non-icteric, oral mucosa pink and moist Neck: supple, full ROM, no JVD, trachea is midline Resp: Lungs CTA, non-labored breathing CV: RRR, no murmur or rubs Abd: soft, non-tender, normoactive BTs Skin: no lesions or rashes, dry and intact Neuro: Alert and oriented X 4 w/no focal deficits. Speech clear and coherent. Extremities: Right knee with a arnol wrap and dressing, just inferior to the knee is dressing and packing with mild purulent drainage, surrounding erythema minimal. There is swelling and minimal erythema in his calf which he reports is improved. Psyche: normal mood and affect Objective Labs Result Diagrams: 06/30/20 05:25 06/30/20 05:25 Labs: Laboratory Results - last 24 hr 06/29/20 06/29/20 06/29/20 19:00 19:00 19:00 WBC 14.4 H RBC 4.49 L Hgb 14.5 Hct 41.6 MCV 92.6 MCH 32.4 MCHC 34.9 RDW 12.4 Plt Count 368 Neut % (Auto) 79.6 H Lymph % (Auto) 10.1 L [place] % (Auto) 9.7 Eos % (Auto) 0.2 L Baso % (Auto) 0.4 Neut # (Auto) 93802 H Lymph # (Auto) 1400 [place] # (Auto) 1400 H Eos # (Auto) 0 Baso # (Auto) 100 ESR 47 H Sodium 135 L Potassium 4.0 Chloride 102 Carbon Dioxide 26 BUN 14 Creatinine 0.98 Estimated GFR > 60.0 BUN/Creatinine Ratio 14.3 Glucose 132 H Lactate Calcium 9.4 Magnesium C-Reactive Protein 12.2 H SARS-CoV-2 (PCR) 06/29/20 06/29/20 06/30/20 19:00 19:09 05:25 WBC 12.8 H RBC 4.28 L Hgb 13.5 Hct 39.9 L MCV 93.1 MCH 31.6 MCHC 33.9 RDW 12.8 Plt Count 380 Neut % (Auto) 66.2 Lymph % (Auto) 20.4 L [place] % (Auto) 11.7 Eos % (Auto) 1.1 L Baso % (Auto) 0.6 Neut # (Auto) 8500 H Lymph # (Auto) 2600 [place] # (Auto) 1500 H Eos # (Auto) 100 Baso # (Auto) 100 ESR Sodium Potassium Chloride Carbon Dioxide BUN Creatinine Estimated GFR BUN/Creatinine Ratio Glucose Lactate 1.3 Calcium Magnesium C-Reactive Protein SARS-CoV-2 (PCR) Negative 06/30/20 05:25 WBC RBC Hgb Hct MCV MCH MCHC RDW Plt Count Neut % (Auto) Lymph % (Auto) [place] % (Auto) Eos % (Auto) Baso % (Auto) Neut # (Auto) Lymph # (Auto) [place] # (Auto) Eos # (Auto) Baso # (Auto) ESR Sodium 138 Potassium 4.4 Chloride 104 Carbon Dioxide 30 BUN 12 Creatinine 0.94 Estimated GFR > 60.0 BUN/Creatinine Ratio 12.8 Glucose 124 H Lactate Calcium 9.2 Magnesium 2.0 C-Reactive Protein SARS-CoV-2 (PCR) [facility] Medical History Healthy adult Family History Mother Alive and well Father Suicide Social History household members: spouse and children Smoking Status: Former smoker alcohol intake: former Assessment & Plan Assessment & Plan narrative: Rolando Au is a 44 year old male admitted with skin and soft tissue infection of the RLE. 1. Skin and soft tissue infection of the R lower extremity and cellulitis, acute and present on admission - Dr. Hernandez consulting, continue packing and dressing changes. - continue ceftriaxone and vancomycin per pharmacy. - orthopedics will continue to follow, as patient may still require further debridement depending on success of antibiotic therapy. - no systemic symptoms today, leukocytosis slightly improved. VTE prophylaxis: Wells risk score: 0 Bilateral SCDs Consults: Dr. Hernandez consult and involvement is appreciated. Dispo: inpatient, anticipate discharge home in the next 1-2 days depending on progression of wound. Quality VTE Deep Vein Thrombosis/Pulmonary Embolism Present on Admission: No
[2020-06-30] MEDS: CEFTRIAXONE 1 GM/50 ML FROZ.PIGGY IV (19:26)
[2020-07-01] VITALS (7 sets, daily range): BP systolic 111–125; BP diastolic 63–82; PULSE 66–70; RESP 16–18; TEMP 36.4–37; O2SAT 94–100
[2020-07-01] MEDS: VANCOMYCIN 1,500 MG/300 ML PIGGYBACK 200 MG IV (06:09)
[2020-07-01] MEDS: SODIUM CHLORIDE 0.9% 250 ML 21 ML IV (06:09)
[2020-07-01] MEDS: SODIUM CHLORIDE 0.9% FLUSH 10 ML IV ×3 (06:09→19:18)
--- NOTE | 2020-07-01 10:17 | PM.PN.1 ---
Subjective Subjective Date Patient Seen: 07/01/20 Time Patient Seen: 07:10 Interval history: Pain mild. Denies fever but had some night sweats. Otherwise without complaints. Exam Vital Signs (past 8 hours): - 07/01/20 07:37 07/01/20 07:45 Temperature 98.2 F Pulse Rate 69 Respiratory Rate 16 Blood Pressure 125/67 Pulse Oximetry 97 96 Oxygen Delivery Method Room Air Oxygen Flow Rate 0 Narrative Exam Narrative: A&O. NAD. Right leg dressing with scant SS drainage. Packing removed and replace with new guaze. No discharge. Mild erythema. Objective Labs Result Diagrams: 06/30/20 05:25 06/30/20 05:25 Labs: Gram Stain Final 06/29/20-2128 White blood cells Many poly WBCs Gram Positive Cocci 3+ Aerobic Culture for wounds Final 07/01/20-651 Organism 1 Staphylococcus aureus Growth HEAVY 1. Staphylococcus aureus M.I.C. RX --------- --- * Daptomycin 0.25 S * Vancomycin 1 S * Ciprofloxacin <=0.5 S * Clindamycin R * Doxycycline <=0.5 S * Erythromycin >=8 R * Gentamicin <=0.5 S * Levofloxacin 0.25 S * Linezolid 2 S * Moxifloxacin <=0.25 S * Oxacillin Farrukh <=0.25 S * Rifampin <=0.5 S * Tetracycline <=1 S * Trimethoprim/Sulfamethoxazole <=10 S Anaerobic Culture Final 06/30/20-1101 Test not performe [facility] Medical History Healthy adult Family History Mother Alive and well Father Suicide Social History household members: spouse and children Smoking Status: Former smoker alcohol intake: former Assessment & Plan Assessment & Plan narrative: WBAT daily packing changes continue IV abx per hospitalist Quality VTE Deep Vein Thrombosis/Pulmonary Embolism Present on Admission: No
[2020-07-01] MEDS: ACETAMINOPHEN 325 MG TABLET 650 MG PO (10:23)
--- NOTE | 2020-07-01 11:38 | CM.DPC ---
DCP Cont: Discussed patient during team rounds. Hospitalist indicated that patient should be able to go home on oral antibiotics when ready, since he has staph. He is currently getting IV antibiotics. P: DCP to continue to follow closely. Valarie Dunn RN/Warp Picker
--- NOTE | 2020-07-01 12:20 | PM.PN.1 ---
Subjective Subjective Date Patient Seen: 07/01/20 Interval history: Admission was then examined bedside. Reports mild pain in right lower extremity with ambulation however denies pain at rest. He does record having intermittent chills and sweats but denies feeling feverish. He denies chest pain, shortness breath, nausea, vomiting, abdominal pain. Per patient, Wound packing was changed by Orthopedic surgery at bedside today. Wound cultures growing MSSA. Vancomycin discontinued. Exam Vital Signs (past 8 hours): - 07/01/20 07:37 07/01/20 07:45 Temperature 98.2 F Pulse Rate 69 Respiratory Rate 16 Blood Pressure 125/67 Pulse Oximetry 97 96 Oxygen Delivery Method Room Air Oxygen Flow Rate 0 Const General: cooperative, healthy appearing, comfortable and well developed [facility] Head: normal to inspection, normocephalic and atraumatic Eyes General: appearance normal, both eyes and all related structures Eyelids: eyelids normal Conjunctivae: conjunctivae normal Sclera: sclerae normal Neck Neck: normal visual inspection, full ROM, no meningeal signs, trachea midline and supple Chest Chest: normal inspection of the chest and normal palpation of entire chest wall Resp Effort & Inspection: normal respiratory effort Auscultation: clear to auscultation bilaterally, no rales, no rhonchi and no wheezes Cardio Palpation: normal PMI Rate: regular rate Rhythm: regular rhythm Heart Sounds: S1 normal and S2 normal GI Inspection: normal to inspection Palpation: soft and No tender Percussion: normal to percussion Auscultation: normal bowel sounds Skin General: turgor normal Neuro General: patient alert, patient awake and patient oriented x3 Cranial Nerves: CN's II-XI intact bilaterally and EOM intact bilaterally Cognition: normal cognition Speech: speech normal Extrem Other: RLE: Anterior proximal torres has on 1 cm X 1 cm wound with packing in place. No surrounding erythema. Overlying bandage CDI. Psych Mood: congruent mood Affect: normal affect Attitude: cooperative Thought Content: normal Objective Labs Result Diagrams: 06/30/20 05:25 06/30/20 05:25 [facility] Medical History Healthy adult Family History Mother Alive and well Father Suicide Social History (Reviewed 07/01/20 @ 12:27 by DANILO White household members: spouse and children Smoking Status: Former smoker alcohol intake: former Assessment & Plan Assessment and plan (1) Septic prepatellar bursitis of right knee: Problem details: S/p bedside I&D 06/[address] Hernandez. Wound cultures growing MSSA. Initially on vancomycin and ceftriaxone, her vancomycin was discontinued following culture results. Blood cultures negative. -orthopedics following, patient may require additional debridement -continue ceftriaxone -continue dressing changes -continue with compressive wrap -weight-bearing as tolerated right lower extremity Status: Acute (2) Atrial fib/flutter, transient: Problem details: Remote history of AFib. CHADSVASc is 0. Status: Acute (3) Cellulitis: Problem details: Management as per septic bursitis section above Status: Acute Quality VTE Deep Vein Thrombosis/Pulmonary Embolism Present on Admission: No Scores CHADS-VASc Congestive heart failure: no Hypertension: no Age 75 years or older: no Diabetes mellitus: no Stroke, TIA, or TE: no Vascular disease: no Age 65 to 74 years: no Sex category (female): Male CHADS-VASc Score: 0
[2020-07-01] MEDS: IBUPROFEN 400 MG TABLET 800 MG PO (14:22)
[2020-07-01] MEDS: CEFTRIAXONE 1 GM/50 ML FROZ.PIGGY IV (19:18)
--- NOTE | 2020-07-02 00:45 | PC.NURSE ---
Addendum entered by Kyra Bailey R.N. 07/02/20 05:46: Complains of 3/10 right ankle pain; medicated with Tylenol. Original Note: 2350: patient is alert and oriented. Breath sounds CTA with RA sat of 100%. HRR. Denies nausea. BT present and abdomen is soft; passing flatus. Denies dysuria, frequency or urgency with urination. Independent with mobility. States he is not currently in pain but has had some back pain relieved by Tylenol/Ibuprofen and hot packs. Also states has some knee pain with weight bearing. Sanguinous drainage noted on arnol wrap so dressing removed (packing left intact) and new 4x4 placed and rewrapped with new arnol bandage. Has right leg elevated on pillows. Refusing SCD's as getting up and moving frequency in room/halls; reminded to ankle wave. Reports no recent falls but fall risk score is moderate so instructed to call for assistance if feeling weak, unsteady or dizzy when getting out of bed and patient verbalizes understanding.
[2020-07-02] MEDS: ACETAMINOPHEN 325 MG TABLET 650 MG PO (05:44)
[2020-07-02 06:08] VITALS: BP 130/77; PULSE 79; RESP 16; TEMP 36.3; O2SAT 98
--- NOTE | 2020-07-02 08:28 | P.PN_ITS ---
Subjective Subjective Date Patient Seen: 07/02/20 Time Patient Seen: 08:29 Interval history: Pain is improved since bedside irrigation debridement in the ER 06/29 evening. He does complain of malaise overnight and chills. No complaints of pain. Exam Vital Signs (past 8 hours): - 07/02/20 06:08 Temperature 97.4 F L Pulse Rate 79 Respiratory Rate 16 Blood Pressure 130/77 Pulse Oximetry 98 Oxygen Delivery Method Room Air Oxygen Flow Rate 0 Narrative Exam Narrative: Patient lying in bed in NAD. He is alert and oriented X3. Erythema improved significantly since 06/30. There is swelling and minimal erythema in his calf that is improving as well. Right leg dressing with scant SS drainage. Longer hairs around wound area shaved as they were in wound. Packing removed and replaced and arnol wrap applied. Objective Labs Result Diagrams: 06/30/20 05:25 06/30/20 05:25 [facility] Medical History Healthy adult Family History Mother Alive and well Father Suicide Social History household members: spouse and children Smoking Status: Former smoker alcohol intake: former Assessment & Plan Assessment & Plan narrative: Patient is a 44-year-old male with the longstanding history of her current staph infections as well as a recurrent history prepatellar bursitis. He presented 06/29 evening to the ER with septic prepatellar bursitis of the right knee. This was drained at bedside and packed. He was then admitted for IV antibiotics. Packing was changed every morning with improvement of his exam. His exam continues to improve. And will see how he does with continued IV antibiotics and packing changes. - WBAT - daily packing changes - continue IV abx per hospitalist Quality VTE Deep Vein Thrombosis/Pulmonary Embolism Present on Admission: No
[2020-07-02 08:30] VITALS: BP 114/74; PULSE 58; RESP 16; TEMP 36.2; O2SAT 97
[2020-07-02] MEDS: SODIUM CHLORIDE 0.9% FLUSH 10 ML IV (09:49)
--- NOTE | 2020-07-02 13:31 | PC.NURSE ---
Patient a/o x 4. Lungs CTA, VS WNL, patient afebrile. Wound dressed by PA this AM. Patient tolerated. Denies pain. Ambulating independently in the room. Verbalized understanding regarding discharge orders, including activity, wound care, scheduling follow up appointment with Nathe in 3-5 days. Demonstrated packing and redressing of wound. Patient given appropriate supplies. Given instructions regarding s/s of infection not improving. Patient verbalized understanding. IV removed. Patient tolerated. Patient discharged via wheelchair, accompanied by aide.
--- NOTE | 2020-07-02 14:42 | CM.DPC ---
DCP: continued: a check in shows that pt did receive a d/c order and left for home this afternoon/see KATHERINE Olvera's notes for details.
--- NOTE | 2020-07-02 17:44 | PM.DS.1 ---
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 He affected open to expose the hair and saw that he had quite a bit of purulence drainage coming out of it. He saw his PCP over on [facility] who gave him an intramuscular injection of Rocephin and prescribed oral Augmentin. He states he took 1 dose of the Augmentin this morning and his knee started to show increased swelling posteriorly as well as increasing erythema. He contacted his PCP who directed him to go get off the [place] and be seen at this ED. The patient has had a number of staph infections usually attributable to his work where he spends a lot of time on his hands and knees. He was also febrile on presentation to the ED of 101?. Dr. Hernandez saw the patient and opened up his wound and was able the express quite a bit of purulence discharge out of the wound. Per the patient he did irrigate the wound and packed it with gauze. He plans to re-evaluate the patient and repack or bring the patient into surgery for a more extensive washout. Currently his temperature has improved and is 99.7 blood pressure 129/73, heart rate 84, respiratory rate of 18, oxygen saturation of 97% on room air he weighs 106 kg with a BMI of 29. His white count is elevated at 14.4, RBC is 4.49, hemoglobin 14.5, hematocrit 41.6, platelet count 368, a does have a left shift with a neutrophil count of 11,500, his ESR is elevated at 47, sodium is 135, glucose was 132, C-reactive protein was 12.2, and COVID 19 PCR is negative. Discharge Providers Provider Date of admission: 06/29/20 21:04 Discharge Date: 07/02/20 Primary care physician: Jose Paul MD Consults: 06/29/20 19:48 Consult to Orthopedic Surgery Stat Comment: Consulting Provider: Wild Hernandez Reason for consultation: cellulitis Has provider been notified: Yes 06/29/20 23:13 Consult to Physician Routine Comment: Consulting Provider: Wild Hernandez Reason for consultation: right knee cellulitis, question septic joint Has provider been notified: Yes Discharge provider: Maranda Dee MD Summary Hospital Course Discharge Diagnosis: 1. Prepatellar bursitis 2. Knee infection secondary to Staph aureus 3. Status post surgical debridement Hospital Course: Patient was admitted to the hospital with right knee infection. He has a history of recurrent Staph aureus infections. Patient was found to have prepatellar bursitis. He was taken to the operating room. Where an I&D was performed. Cultures were obtained growing Staph aureus. Patient was treated with IV antibiotics. The cellulitis surrounding the area improved. The drainage from the knee improved. The patient made slow but steady progress, he was deemed appropriate for discharge and arrangements were made for him to discharge home. Patient was discharged home on oral antibiotics. He will follow-up with orthopedics in 3-4 days for evaluation of the wound and further follow up. Status at Discharge Cognitive/behavioral status at discharge: oriented Functional status at discharge: independent ambulation Overall status at discharge: patient is back to baseline Time Spent with Patient Time spent: Less than 30 minutes Exam Vital Signs (past 8 hours): Oxygen Delivery Method Room Air Oxygen Flow Rate 0 Narrative Exam Narrative: Pleasant gentleman in no acute distress Lungs: Clear to auscultation Cardiac exam: Regular rate and rhythm normal S1-S2 Abdomen: Soft nontender Right knee: [address], awake in place, no erythema surrounding the knee, no tenderness, no exudate noted Objective Labs Result Diagrams: 06/30/20 05:25 06/30/20 05:25 [facility] Medical History Healthy adult Family History Mother Alive and well Father Suicide Social History household members: spouse and children Smoking Status: Former smoker alcohol intake: former Discharge Assessment & Plan Assessment and Plan Assessment: 1. Prepatellar bursitis 2. Staph aureus skin and soft tissue infection 3. Status post I&D of the right pre patella Plan of Treatment: Antibiotics as prescribed Wound care Follow-up as indicated above Discharge Plan Discharge Plan Patient Disposition: Home Discharge orders & Medications Prescriptions: New levofloxacin 500 mg tablet 500 mg PO DAILY 7 Days RF: 0 levofloxacin 500 mg tablet 500 mg PO DAILY 7 Days RF: 0 Continued ibuprofen 600 mg Tablet 600 mg PO TID RF: 0 Follow up/Referrals: Wild eHrnandez MD [Physician] - 3-5 Days Jose Paul MD [Primary Care Provider] - Discharge Health Status Multidrug resistant organism: No MDRO Diet/Activity/Treatments Diet: Diet as Tolerated Skin/Wound/Dressing Care Report to your healthcare provider any signs of infection, such as:: chills, fever and unusual drainage Discharge Data Primary Care Provider: Jose Paul Quality VTE Deep Vein Thrombosis/Pulmonary Embolism Present on Admission: No
== END 2020-07-02 13:20 | disposition home or self-care (01) | DRG 501 ==
LOC: ED 21:03 → AC 21:04
PROVIDERS: Admitting Provider Nurse Practitioner Family; Emergency Provider Emergency Medicine; Family Provider Internal Medicine; PCP Family Medicine; Referring Provider Emergency Medicine; Visit Provider Nurse Practitioner Family
DX: M71.161 Other infective bursitis, right knee (principal); L03.115 Cellulitis of right lower limb; A49.01 Methicillin susceptible Staphylococcus aureus infection, unspecified site; Z87.891 Personal history of nicotine dependence; Z20.822 Contact with and (suspected) exposure to COVID-19; R11.0 Nausea
CPT/HCPCS: 36415; 73562; 80048; 83605; 83735; 85025; 85651; 86140; 87040; 87070; 87075; 87077; 87147; 87186; 87205; 87635; 96361; 96365; 96368; 99284; C9803

== ENCOUNTER → 2020-08-31 10:08 | Outpatient (CLI) | payer OTHER, SELFPAY ==
[2020-06-29 21:31] VITALS: BMI 29.0
--- NOTE | 2020-08-31 10:10 | DI.RAD.S_ITS ---
PROCEDURE: FL BARIUM SWALLOW INDICATIONS: Dysphagia, unspecified,COUGH COMPARISON: None. FINDINGS: Function: There is normal esophageal peristalsis. There was mild spontaneous and elicited gastroesophageal reflux. There is normal transit of a calibrated barium tablet through the esophagus into the stomach. Morphology: Air-contrast images demonstrate normal mucosal morphology. Single contrast views show no esophageal strictures, extrinsic mass effects, or diverticula. Limited images of the stomach demonstrate normal appearance. IMPRESSION: Normal for age except for mild spontaneous and elicited gastroesophageal reflux was observed. The, source of current left neck pain, abdominal pain, and lower chest pain symptoms is not seen. Dictated by: Jayro Quinonez M.D. on 08/31/2020 at 13:50 Approved by: Jayro Quinonez M.D. on 08/31/2020 at 13:51
== END ==
PROVIDERS: PCP Family Medicine; Referring Provider Family Medicine; Visit Provider Family Medicine
DX: R05 Cough (principal); R13.10 Dysphagia, unspecified; K21.9 Gastro-esophageal reflux disease without esophagitis
CPT/HCPCS: 74220

== ENCOUNTER → 2020-11-24 10:21 | Outpatient (CLI) | payer OTHER, SELFPAY ==
[2020-06-29 21:31] VITALS: BMI 29.0
--- NOTE | 2020-11-24 | DI.CT.S_ITS ---
PROCEDURE: CT SOFT TISSUE NECK W CON INDICATIONS: Cervicalgia TECHNIQUE: After the administration of intravenous contrast, 3.0 mm axial sections acquired from the sella to the aortic arch. Additional oblique axial 3.0 mm sections acquired through the pharynx. 3 mm thick coronal and sagittal reformats were generated. For radiation dose reduction, the following was used: automated exposure control. COMPARISON: None. FINDINGS: Image quality: Excellent. Lymph nodes: No enlarged lymph nodes seen throughout the neck. Vessels: Visualized vasculature appears patent. Neck spaces: Reform tonsils are prominent bilaterally. Small bilateral palatine tonsilliths, right greater than left. The oropharynx, nasopharynx, and pharynx demonstrate no mucosal lesions. The vocal cords, false vocal cords, pyriform sinuses, epiglottis, vallecula, and tongue base all appear normal. Extramucosal spaces appear unremarkable. Glands: The parotid and submandibular glands appear normal. Thyroid gland is within normal limits. Miscellaneous: Visualized brain and orbits appear normal. Lung apices appear clear. Superficial soft tissues appear normal. Bones: No suspicious bony lesions. Mild mucosal thickening noted in the floor the right maxillary sinus. The mastoids appear unremarkable. IMPRESSION: 1. Bilateral palatine tonsil prominence which could be due to tonsillitis, hypertrophy or less likely neoplastic process. Recommend correlation with direct visualization. 2. No mucosal based mass. 3. No lymphadenopathy based on size criteria. Dictated by: Sara Hartman MD, PhD on 11/24/2020 at 10:45 Approved by: Sara Hartman MD, PhD on 11/24/2020 at 10:53
== END ==
PROVIDERS: PCP Family Medicine; Referring Provider Family Medicine; Visit Provider Family Medicine
DX: M54.2 Cervicalgia (principal)
CPT/HCPCS: 70491

== ENCOUNTER → 2021-09-21 09:00 | Outpatient (CLI) | payer OTHER, SELFPAY ==
[2020-06-29 21:31] VITALS: BMI 29.0
--- NOTE | 2021-09-21 | DI.US.S_ITS ---
PROCEDURE: US ABDOMEN LIMITED INDICATIONS: RIGHT UPPER QUADRANT PAIN TECHNIQUE: Real-time focused scanning was performed of the abdomen, with image documentation. COMPARISON: [facility], US, US ABDOMEN COMPLETE, 06/14/2018, 9:30. FINDINGS: The liver demonstrates prominent size. The liver demonstrates normal overall echogenicity. The main portal vein demonstrates normal size and demonstrates normal appearing, hepatopetal flow. No findings of gallstones or sludge are seen. The gallbladder wall is not thickened, measuring 3 mm or less. No specific pericholecystic fluid is seen. The sonographic Russell sign is negative. There is no biliary dilatation, the common bile duct measures 3 mm. The pancreas is not well seen. IMPRESSION: The gallbladder demonstrates a normal sonographic appearance. No biliary dilatation is seen. Mildly enlarged liver. Dictated by: Curt Ramirez M.D. on 09/22/2021 at 14:03 Approved by: Curt Ramirez M.D. on 09/22/2021 at 14:04
== END ==
PROVIDERS: PCP Family Medicine; Referring Provider Family Medicine; Visit Provider Family Medicine
DX: R10.11 Right upper quadrant pain (principal); R16.0 Hepatomegaly, not elsewhere classified
CPT/HCPCS: 76705

== ENCOUNTER → 2022-07-14 12:05 | Outpatient (CLI) | payer OTHER, SELFPAY ==
[2020-06-29 21:31] VITALS: BMI 29.0
--- NOTE | 2022-07-14 | DI.CT.S_ITS ---
PROCEDURE: CT ABDOMEN LIVER PROTOCOL INDICATIONS: ABNORMAL FINDING ON PRIOR ULTRASOUND TECHNIQUE: 4 phase scanning was performed. Non-contrast 5 mm axial sections acquired from the diaphragm to the iliac crests. Following the administration of intravenous contrast, 5 mm thick arterial-phase, portal venous-phase, and 5-minute delayed phase images were acquired through the liver. 5 mm thick coronal and sagittal reformats were performed. For radiation dose reduction, the following was used: automated exposure control, adjustment of mA and/or kV according to patient size. COMPARISON: [facility], CT, ABDOMEN/PELVIS WITH CONTRAST, 08/17/2010, 19:36. FINDINGS: Image quality: Excellent. Lung bases: Lung bases are clear. Heart size is normal. Liver: Normal in echotexture, free of fatty infiltration, mass lesion, or biliary distension. The liver measures 18.8 cm craniocaudad but overall appears proportionate in size to the body habitus. The spleen is normal in enhancement and size. No varices or ascites is found. Other solid organs: Gallbladder appears normal. Biliary system is non dilated. Pancreas is normal in morphology. Spleen is normal in size and enhancement. No adrenal nodules. Both kidneys demonstrate normal size and enhancement, without hydronephrosis or nephrolithiasis. Nodes and vessels: No retroperitoneal or mesenteric adenopathy by size criteria. Aorta and inferior vena cava are normal in size. Bowel and peritoneum: Unenhanced bowel loops are normal in caliber. No free fluid or air. Bones: No suspicious bony lesions. No vertebral body compression fractures. Miscellaneous: No ventral hernias. IMPRESSION: Normal hepatic enhancement, and in my opinion the liver is proportionate in size to the patient's body habitus. The spleen appears normal as do the bile ducts. The liver size and morphology is virtually identical to that seen from a comparison CT 08/17/10. Based on these findings no follow-up is recommended. Dictated by: Jayro Quinonez M.D. on 07/14/2022 at 15:22 Approved by: Jayro Quinonez M.D. on 07/14/2022 at 15:26
== END ==
PROVIDERS: PCP Family Medicine; Referring Provider Family Medicine; Visit Provider Family Medicine
DX: R93.2 Abnormal findings on diagnostic imaging of liver and biliary tract (principal)
CPT/HCPCS: 74170; Q9967

== ENCOUNTER → 2023-06-20 09:06 | Outpatient (CLI) | payer OTHER, SELFPAY ==
[2020-06-29 21:31] VITALS: BMI 29.0
[2023-06-20 19:12] LABS: Add Manual Diff / Slide Review NO; Basophils Absolute Auto 0 /uL (0-100); Basophils Percent Auto 0.5 % (0-2); Eosinophils Absolute Auto 300 /uL (0-450); Eosinophils Percent Auto 6.7 % (2-4); Hematocrit 45.2 % (41-53); Hemoglobin 15.5 g/dL (13.5-17.5); Lymphocytes Absolute Auto 2200 /uL (1100-4500); Lymphocytes Percent Auto 43.4 % (25-40); Mean Corpuscular HGB Conc 34.4 % (30-36); Mean Corpuscular Hemoglobin 31.8 PG (26-34); Mean Corpuscular Volume 92.5 fL (80-100); Monocytes Absolute Auto 600 /uL (0-900); Monocytes Percent Auto 11.8 % (3-14); Neutrophils Absolute Auto 1900 /uL (1500-7000); Neutrophils Percent Auto 37.6 % (50-75); Platelet Count 358 X10^3/uL (150-400); Red Blood Cell Count 4.88 X10^6/uL (4.5-5.9); Red Cell Distribution Width 12.9 % (11.6-14.8); White Blood Cell Count 5.1 X10^3/uL (4.5-11.0)
[2023-06-20 19:23] LABS: Alanine Aminotransferase 49 IU/L (<50); Albumin 4.4 g/dL (3.5-5.0); Albumin Globulin Ratio 1.5 (1.0-2.8); Alkaline Phosphatase 52 U/L (38-126); Aspartate Aminotransferase 37 IU/L (17-59); BUN Creatinine Ratio 19.4 (6-22); Bilirubin Total 0.8 mg/dL (0.2-1.3); Blood Urea Nitrogen 19 mg/dL (9-20); C-Reactive Protein Quant < 0.5 mg/dL (<1.0); Calcium 10.4 mg/dL (8.4-10.2); Carbon Dioxide 26 mmol/L (22-32); Chloride 103 mmol/L (98-107); Cholesterol 250 mg/dL (140-199); Estimated Glomerular Filt Rate > 60 mL/min (>60); Glucose 94 mg/dL (70-100); HDL Cholesterol 54 mg/dL (40-60); HEMOLYSIS < 15 (0-50); LDL Cholesterol Calculated 160 mg/dL (<100); Potassium 4.6 mmol/L (3.4-5.1); Sodium 136 mmol/L (137-145); Total Protein 7.4 g/dL (6.3-8.2); Triglycerides 180 mg/dL (35-150)
== END ==
PROVIDERS: PCP Family Medicine; Visit Provider Physician Assistant
DX: R10.31 Right lower quadrant pain (principal); E78.5 Hyperlipidemia, unspecified
CPT/HCPCS: 80053; 80061; 85025; 86140

== ENCOUNTER → 2023-09-14 09:48 | Outpatient (CLI) | payer OTHER, SELFPAY ==
[2020-06-29 21:31] VITALS: BMI 29.0
== END ==
PROVIDERS: PCP Family Medicine; Visit Provider Physician Assistant
DX: L03.039 Cellulitis of unspecified toe (principal)
CPT/HCPCS: 87070; 87075; 87147; 87205

== ENCOUNTER → 2024-03-26 16:33 | Outpatient (CLI) | payer OTHER, SELFPAY ==
[2020-06-29 21:31] VITALS: BMI 29.0
[2024-03-26 18:46] LABS: Urine N gonorrhoeae NOT DETECTED
[2024-03-26 19:26] LABS: Urine Chlamydia NOT DETECTED
== END ==
PROVIDERS: PCP Family Medicine; Visit Provider Student in an Organized Health Care Education/Training Program
DX: A64 Unspecified sexually transmitted disease (principal); Z11.3 Encounter for screening for infections with a predominantly sexual mode of transmission
CPT/HCPCS: 87491; 87591

== ENCOUNTER → 2024-03-26 17:14 | Outpatient (CLI) | payer OTHER, SELFPAY ==
[2020-06-29 21:31] VITALS: BMI 29.0
[2024-03-26 19:13] LABS: Hepatitis B Surface Antigen NEGATIVE s/c (NEGATIVE)
[2024-03-26 19:30] LABS: HIV 1 & 2 Ab/Ag 4th Gen Combo NEGATIVE (NEGATIVE); Hep C Virus Ab w/Reflex Quant NEGATIVE s/c (NEGATIVE)
[2024-03-28 01:08] LABS: RPR Screen Non Reactive (Non Reactive)
== END ==
LOC: LAB 17:15
PROVIDERS: PCP Family Medicine; Referring Provider Student in an Organized Health Care Education/Training Program; Visit Provider Student in an Organized Health Care Education/Training Program
DX: Z11.3 Encounter for screening for infections with a predominantly sexual mode of transmission (principal); A64 Unspecified sexually transmitted disease
CPT/HCPCS: 36415; 86592; 86695; 86696; 86803; 87340; 87389; 87491; 87591